=== PATIENT | male | born 1955 | race Caucasian/White ===

== ENCOUNTER 2024-01-25 17:31 | Emergency (ER) | payer MEDICARE, OTHER ==
[2024-01-25 18:12] LABS: BILIRUBIN,URINE NEGATIVE (NEGATIVE); GLUCOSE, URINE (UA) NEGATIVE (NEGATIVE); KETONES,URINE (UA) NEGATIVE (NEGATIVE); LEUKOCYTE ESTERASE, URINE NEGATIVE (NEGATIVE); NITRITE,URINE NEGATIVE (NEGATIVE); OCCULT BLOOD,URINE LARGE (NEGATIVE); PH,URINE 5.5 PH (5.0-7.5); PROTEIN,URINE NEGATIVE (NEGATIVE); UROBILINOGEN,URINE 0.2 (NORMAL) E.U./dL (NORMAL)
[2024-01-25 18:14] LABS: CLARITY,URINE HAZY (CLEAR)
[2024-01-25 18:19] LABS: BACTERIA,URINE None Seen /HPF (None Seen); SQUAMOUS EPITHELIAL CELL,UR NONE SEEN (<= Few); WBC,URINE 0-3 /HPF (0-3)
--- NOTE | 2024-01-25 18:56 | ED Physician Documentation ---
History of Present Illness - Stated complaint Stated Complaint: - Chief complaint Chief Complaint: General - History obtained from History obtained from: Patient - Additonal information Additional information: 68-year-old male with history of thoracic aneurysm repair and aortic valve replacement on warfarin presents for dark-colored urine today. Patient reports several voids of dark urine despite drinking plenty of water. Patient states that since he has come to the emergency department his urine has seemed to clear. Patient has been recovering uneventfully from his cardiothoracic surgery [place] Patient denies any pain or complaints. His prompted him to come to the emergency department for evaluation of his dark urine out of concern that there may be blood present. Review of Systems Constitutional: denies: Fever, Chills Respiratory: denies: Dyspnea, Cough, Wheezing GI: denies: Abdominal Pain, Nausea, Vomiting : reports: Hematuria. denies: Frequency (Dark urine), Hesitancy Musculoskeletal: denies: Neck pain, Back pain, Extremity pain Neurologic: denies: Generalized weakness, Focal weakness, Numbness PD PAST MEDICAL HISTORY - Past Medical History Past Medical History: Yes Cardiovascular: Hypertension, High cholesterol, Valve disorder, Other Respiratory: None Neuro: None Endocrine/Autoimmune: None GI: None : Kidney stones HEENT: None Psych: None Musculoskeletal: Gout Derm: None - Past Surgical History Past Surgical History: Yes Ortho: Shoulder arthroplasty Cardiovascular: Valve replacement, Cardiac catheterization, AAA - Present Medications Home Medications: Ambulatory Orders Medication Instructions Recorded Confirmed Aspirin EC [Ecotrin] 81 mg PO DAILY 01/25/24 01/25/24 Atorvastatin Calcium 40 mg PO HS 01/25/24 01/25/24 Multivit with Iron,Minerals 1 each PO DAILY 01/25/24 01/25/24 [Multivitamins with Iron] Warfarin [Coumadin] 4.5 mg PO DAILY 01/25/24 01/25/24 allopurinoL [Zyloprim] 100 mg PO DAILY 01/25/24 01/25/24 carvediloL [Coreg] 6.25 mg PO BID 01/25/24 01/25/24 - Allergies Allergies/Adverse Reactions: Allergies Allergy/AdvReac Type Severity Reaction Status Date / Time No Known Drug Allergies Allergy Verified 01/25/24 17:36 - Social History Does the pt smoke?: No Smoking Status: Never smoker Does the pt drink ETOH?: No Does the pt have substance abuse?: No - Immunizations Immunizations are current?: Yes - POLST Patient has POLST: No PD ED PE NORMAL - Vitals Vital signs reviewed: Yes - General General: Alert and oriented X 3, No acute distress, Well developed/nourished - Cardiac Cardiac: RRR, Strong equal pulses - Respiratory Respiratory: No respiratory distress, Clear bilaterally - Abdomen Abdomen: Soft, Non tender, Non distended - Back Back: No CVA TTP, No spinal TTP - Derm Derm: Normal color, Warm and dry, No rash - Neuro Neuro: Alert and oriented X 3, 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, No motor deficit, Normal speech Results - Vitals Vitals: Vital Signs - 24 hr 01/25/24 01/25/24 17:36 19:15 Temperature 36.3 C L Heart Rate 70 66 Respiratory 18 16 Rate Blood Pressure 165/85 H 160/83 H O2 Saturation 100 97 Oxygen O2 Source Room air - Labs Labs: Laboratory Tests 01/25/24 01/25/24 01/25/24 17:55 19:02 19:02 WBC 5.9 RBC 4.69 L Hgb 13.8 L Hct 43.9 MCV 93.6 MCH 29.4 MCHC 31.4 L RDW 14.8 Plt Count 166 MPV 9.7 Neut # (Auto) 1.7 Lymph # (Auto) 3.4 [place] # (Auto) 0.7 Eos # (Auto) 0.1 Baso # (Auto) 0.0 Absolute Nucleated RBC 0.00 Nucleated RBC % 0.0 PT 19.2 H INR 1.8 H Sodium Potassium Chloride Carbon Dioxide Anion Gap BUN Creatinine Estimated GFR (MDRD) Glucose Calcium Total Bilirubin AST ALT Alkaline Phosphatase Total Protein Albumin Globulin Albumin/Globulin Ratio Urine Color YELLOW Urine Clarity HAZY Urine pH 5.5 Ur Specific [place] <=1.005 Urine Protein NEGATIVE Urine Glucose (UA) NEGATIVE Urine Ketones NEGATIVE Urine Occult Blood LARGE H Urine Nitrite NEGATIVE Urine Bilirubin NEGATIVE Urine Urobilinogen 0.2 (NORMAL) Ur Leukocyte Esterase NEGATIVE Urine RBC 11-25 H Urine WBC 0-3 Ur Squamous Epith Cells NONE SEEN Urine Bacteria None Seen Ur Microscopic Review INDICATED Urine Culture Comments NOT INDICATED 01/25/24 19:02 WBC RBC Hgb Hct MCV MCH MCHC RDW Plt Count MPV Neut # (Auto) Lymph # (Auto) [place] # (Auto) Eos # (Auto) Baso # (Auto) Absolute Nucleated RBC Nucleated RBC % PT INR Sodium 139 Potassium 3.6 Chloride 104 Carbon Dioxide 31 Anion Gap 4.0 L BUN 15 Creatinine 0.9 Estimated GFR (MDRD) 84 L Glucose 60 L* Calcium 9.8 Total Bilirubin 0.6 AST 26 ALT 23 Alkaline Phosphatase 117 Total Protein 6.0 L Albumin 4.2 Globulin 1.8 L Albumin/Globulin Ratio 2.3 H Urine Color Urine Clarity Urine pH Ur Specific [place] Urine Protein Urine Glucose (UA) Urine Ketones Urine Occult Blood Urine Nitrite Urine Bilirubin Urine Urobilinogen Ur Leukocyte Esterase Urine RBC Urine WBC Ur Squamous Epith Cells Urine Bacteria Ur Microscopic Review Urine Culture Comments PD Medical Decision Making - ED course Complexity details: reviewed results, re-evaluated patient, considered differential, d/w patient ED course: Dark urine, possible hematuria on warfarin. Patient states last INR check 2.0, states that his INR goal is 1.5-2.0. Physical exam is unremarkable, there is no abnormality present. Laboratory work significant for RBCs present in urine without sign of infection. INR 1.8. Normal kidney function, hemoglobin greater than 13. Patient states that his urine since arriving to the emergency department has been clear. Patient counseled on lab and imaging findings, uncertain etiology of hematuria, but normal lab work is reassuring. Patient counseled to continue all of his medications as prescribed and to follow-up with his primary care doctor if he continues to experience dark urine. Departure - Departure Disposition: 01 Home, Self Care Clinical Impression: Microscopic hematuria Condition: Stable Instructions: ED Hematuria Comments: You did have a small amount of red blood cells in your urine, however your blood counts were normal and you are nowhere near needing transfusion. Your kidney function was normal and your INR today was 1.8. Follow-up with your primary doctor if you continue to have dark urine or notice blood. Forms: PCP List Discharge Date/Time: 01/25/24 19:50
[2024-01-25 19:10] LABS: BASOPHILS % (AUTO) 0.5 %; EOSINOPHILS # (AUTO) 0.1 10^3/uL (0.0-0.7); EOSINOPHILS % (AUTO) 1.7 %; HCT - HEMATOCRIT 43.9 % (42.0-52.0); HGB - HEMOGLOBIN 13.8 g/dL (14.0-18.0); LYMPHOCYTES # (AUTO) 3.4 10^3/uL (1.5-3.5); LYMPHOCYTES % (AUTO) 57.4 %; MEAN CORPUSCULAR HEMOGLOBIN 29.4 pg (27.0-31.0); MEAN CORPUSCULAR HGB CONC 31.4 g/dL (32.0-36.0); MEAN CORPUSCULAR VOLUME 93.6 fL (80.0-94.0); MEAN PLATELET VOLUME 9.7 fL (7.4-11.4); MONOCYTES # (AUTO) 0.7 10^3/uL (0.0-1.0); MONOCYTES % (AUTO) 11.7 %; NEUTROPHILS # (AUTO) 1.7 10^3/uL (1.5-6.6); NEUTROPHILS % (AUTO) 28.7 %; PLT - PLATELET COUNT 166 10^3/uL (130-450); RED BLOOD COUNT 4.69 10^6/uL (4.70-6.10); RED CELL DISTRIBUTION WIDTH 14.8 % (12.0-15.0); WHITE BLOOD COUNT 5.9 x10^3/uL (4.8-10.8)
[2024-01-25 19:22] LABS: INR 1.8 (0.8-1.2); PT - PROTHROMBIN TIME 19.2 secs (9.9-12.6)
[2024-01-25 19:31] VITALS: BP 160/83; O2SAT 97
[2024-01-25 19:37] LABS: ALBUMIN 4.2 g/dL (3.2-5.5); ALBUMIN/GLOBULIN RATIO 2.3 (1.0-2.2); BILIRUBIN,TOTAL 0.6 mg/dL (0.2-1.0); CALCIUM 9.8 mg/dL (8.5-10.3); CREATININE 0.9 mg/dL (0.6-1.3); POTASSIUM 3.6 mmol/L (3.5-4.5)
== END 2024-01-25 19:50 | disposition home or self-care (01) ==
LOC: ED 17:31
DX: R31.29 Other microscopic hematuria (principal); I10 Essential (primary) hypertension; E78.00 Pure hypercholesterolemia, unspecified; Z79.82 Long term (current) use of aspirin; Z79.899 Other long term (current) drug therapy; Z79.01 Long term (current) use of anticoagulants
CPT/HCPCS: 36415; 80053; 81001; 81003; 85025; 85610; 87086; 99283